=== PATIENT | female | born 1955 | race African-American/Black ===

== ENCOUNTER 2018-05-27 12:50 | Emergency (ER) | payer BC, MEDICAID ==
--- NOTE | 2018-05-27 13:07 | ER Document Report ---
ED General - General Chief Complaint: High Blood Pressure Stated Complaint: BLOOD PRESSURE ISSUES Time Seen by Provider: 05/27/18 13:04 Notes: Patient is a 62-year-old female that presents to the emergency department for chief complaint of cough and high blood pressure. Patient was seen at urgent care today for evaluation for cough and congestion, they had apparently performed an EKG which demonstrated T wave inversions and possible slight ST depression, and they were concerned about this because her blood pressure was elevated in the 200 systolic so they had her come to the emergency department by EMS. The patient denies at any point of having any chest pain recently, today or otherwise. She denies feeling short of breath. She states she is had a dry cough for the past several days since , she said she had some chills o arthur the weekend, that has since resolved. She did take some TheraFlu for this, denies any medications today. Denies any lightheadedness, nausea, vomiting, diaphoresis, abdominal pain, dysuria or hematuria. She was apparently given clonidine prior to ED arrival, 0.1 mg as well as 325 mg of oral aspirin. Past Medical History: Denies chronic medical conditions Past Surgical History: Hysterectomy, cholecystectomy Social History: Denies tobacco, alcohol or illicit drug use. Family History: Reviewed and noncontributory for presenting illness Allergies: Reviewed, see documented allergy list. REVIEW OF SYSTEMS: Other than noted above, the 12 point review of systems was reviewed with the patient and were negative, all pertinent findings are included in the HPI. PHYSICAL EXAMINATION: Vital signs reviewed, nursing noted reviewed. GENERAL: Obese, well-appearing, well-nourished and in no acute distress. HEAD: Atraumatic, normocephalic. EYES: Eyes appear normal, extraocular movements intact, sclera anicteric, conjunctiva are normal. ENT: nares patent, oropharynx clear without exudates. Moist mucous membranes. NECK: Normal range of motion, supple without lymphadenopathy LUNGS: Bilateral wheezing noted throughout all lung davila, no acute respiratory distress HEART: Regular rate and rhythm without murmurs ABDOMEN: Soft, nontender, normoactive bowel sounds. No rebound, guarding, or rigidity. No masses appreciated. EXTREMITIES: Nontender, good range of motion, no pitting or edema. NEUROLOGICAL: No focal neurological deficits. Moves all extremities spontaneously Motor and sensory grossly intact on exam. PSYCH: Normal mood, normal affect. SKIN: Warm, Dry, normal turgor, no rashes or lesions noted on exposed skin TRAVEL OUTSIDE OF THE [place] IN LAST 30 DAYS: No - Related Data Allergies/Adverse Reactions: No Known Allergies Allergy (Verified 05/27/18 13:04) Past Medical History - Social History Smoking Status: Former Smoker Chew tobacco use (# tins/day): No Frequency of alcohol use: None Drug Abuse: None Family History: Reviewed & Not Pertinent Patient has suicidal ideation: No Patient has homicidal ideation: No Renal/ Medical History: Denies: Hx Peritoneal Dialysis Physical Exam - Vital signs Vitals: Pulse Ox 97 05/27/18 13:00 Course - Re-evaluation Re-evalutation: Patient seen and examined vital signs reviewed. Laboratory data and imaging were ordered as appropriate for the patient's pr esenting symptoms and complaint, with consideration of any critical or life threatening conditions that may be associated with their obtained history and exam as noted above. Patient was treated with DuoNeb breathing treatment Results were reviewed when available and demonstrated EKG as noted, negative troponin, chest x-ray demonstrated mild cardiomegaly, otherwise negative, blood work otherwise unremarkable. The patient was re-evaluated and was stable and improved after DuoNeb's, discussed with the patient her markedly elevated blood pressure, she had received clonidine and her blood pressure was coming down to the 160s systolic, I will place her on amlodipine 5 mg daily, and have her follow-up with her primary care physician, as the think the patient does have essential hypertension, and will need treatment, advised follow-up otherwise, she is given an albuterol inhaler, advised to use 2 puffs every 4 hours as needed, along with the spacer. She is also given 5 days worth of prednisone to help with her bronchospastic bronchitis. Evaluation was most consistent with acute bronchitis, elevated blood pressure Results were discussed with the patient at this point, after careful c onsideration I feel that that patient can be discharged from the emergency department, the patient was educated treatments and reasons to return to the emergency department based on their presumed diagnosis as noted above, they were advised to followup with a primary care physician in 2-3 days. Patient was agreeable to plan of care. *Note is created using voice recognition software and may contain spelling, syntax or grammatical errors. Laboratory 05/27/18 05/27/18 05/27/18 13:05 14:00 14:00 WBC 7.8 RBC 5.54 H Hgb 12.1 Hct 37.8 MCV 68 L MCH 21.8 L MCHC 31.9 L RDW 17.0 H Plt Count 280 Seg Neutrophils % 53.5 Lymphocytes % 30.6 Monocytes % 9.4 Eosinophils % 5.8 Basophils % 0.7 Absolute Neutrophils 4.2 Absolute Lymphocytes 2.4 Absolute Monocytes 0.7 Absolute Eosinophils 0.5 Absolute Basophils 0.1 Sodium 138.2 Potassium 4.5 Chloride 105 Carbon Dioxide 26 Anion Gap 7 BUN 11 Creatinine 0.94 Est GFR ( Amer) > 60 Est GFR (Non-Af Amer) > 60 Glucose 94 Calcium 9.2 Total Bilirubin 0.3 Direct Bilirubin 0.2 Neonat Total Bilirubin Not Reportable Neonat Direct Bilirubin Not Reportable Neonat Indirect Bili Not Reportable AST 15 ALT 17 Alkaline Phosphatase 86 Troponin I < 0.012 Total Protein 7.2 Albumin 3.8 Chest X-Ray 05/27/18 13:17 IMPRESSION: Cardiomegaly. - Vital Signs Vital signs: Temp Pulse Resp BP Pulse Ox 98.3 F 19 168/91 H 96 05/27/18 13:03 05/27/18 15:01 05/27/18 15:01 05/27/18 15:01 - Laboratory Result Diagrams: 05/27/18 13:05 05/27/18 14:00 Laboratory results interpreted by me: 05/27/18 13:05 RBC 5.54 H MCV 68 L MCH 21.8 L MCHC 31.9 L RDW 17.0 H - EKG Interpretation by Me Additional EKG results interpreted by me: EKG demonstrates sinus rhythm with a ventricular rate of 59 bpm, normal axis, normal intervals, there are T wave inversions in leads II, III and aVF, as well as leads V2 and V3, no ST segment changes. EKG is compared with EKG performed at urgent care, with what appears to be improvement of her T wave inversions. Discharge - Discharge Clinical Impression: Elevated blood pressure reading URI (upper respiratory infection) Qualifiers: URI type: unspecified URI Qualified Code(s): J06.9 - Acute upper respiratory infection, unspecified Condition: Stable Disposition: HOME, SELF-CARE Instructions: High Blood Pressure, Requiring Treatment ([facility]), Upper Respiratory Illness ([facility]) Additional Instructions: Your blood pressure was very high today and required treatment to bring it down, please follow-up with your primary care physician within 2 weeks, please take the prescribed blood pressure medication daily, and take the prescribed prednisone and albuterol as instructed. You should use the albuterol 2 puffs every 4 hours as needed, but please use it at least 3-4 times a day for the next 3-5 days, to assist with your cough and congestion. Prescriptions: RX: Amlodipine Besylate [Norvasc 5 mg Tablet] 5 mg PO DAILY #14 tablet RX: Prednisone [Deltasone 20 mg Tablet] 2 tab PO DAILY 5 Days #10 tablet Forms: Elevated Blood Pressure Referrals: LOCALMD,NO [NO LOCAL MD] - Follow up as needed
[2018-05-27] MEDS ORDERED: IPRATROPIUM/ALBUTEROL 0.5-2.5 MG/3 ML AMPUL NEB ONE (13:08)
--- NOTE | 2018-05-27 14:09 | RADIOLOGY REPORT (SQ) ---
EXAM DESCRIPTION: CHEST SINGLE VIEW COMPLETED DATE/TIME: 05/27/2018 1:46 pm REASON FOR STUDY: cough COMPARISON: None. EXAM PARAMETERS: NUMBER OF VIEWS: AP portable upright view. TECHNIQUE: Single frontal radiographic view of the chest acquired. RADIATION DOSE: NA LIMITATIONS: None. FINDINGS: LUNGS AND PLEURA: No opacities, masses or pneumothorax. No pleural effusion. MEDIASTINUM AND HILAR STRUCTURES: No masses. Contour normal. HEART AND VASCULAR STRUCTURES: Marked cardiomegaly. Pulmonary vasculature is normal. BONES: No acute findings. HARDWARE: None in the chest. OTHER: Chest leads in place. IMPRESSION: Cardiomegaly. TECHNICAL DOCUMENTATION: JOB ID: [id number] [email or web address]- All Rights Reserved Reading location - IP/workstation name: [email or web address]
[2018-05-27 14:32] LABS: ALANINE AMINOTRANSFERASE 17 U/L (9-52); ALBUMIN 3.8 g/dL (3.5-5.0); ALKALINE PHOSPHATASE 86 U/L (38-126); ANION GAP 7 (5-19); ASPARTATE AMINO TRANSFERASE 15 U/L (14-36); BILIRUBIN,DIRECT 0.2 mg/dL (0.0-0.4); BILIRUBIN,TOTAL 0.3 mg/dL (0.2-1.3); BLOOD UREA NITROGEN 11 mg/dL (7-20); CALCIUM 9.2 mg/dL (8.4-10.2); CARBON DIOXIDE 26 mmol/L (22-30); CHLORIDE 105 mmol/L (98-107); GLUCOSE 94 mg/dL (75-110); POTASSIUM 4.5 mmol/L (3.6-5.0); SODIUM 138.2 mmol/L (137-145); TOTAL PROTEIN 7.2 g/dL (6.3-8.2)
[2018-05-27 14:35] LABS: ABSOLUTE BASOPHILS # (AUTO) 0.1 10^3/uL (0.0-0.2); ABSOLUTE EOSINOPHILS # (AUTO) 0.5 10^3/uL (0.0-0.6); ABSOLUTE LYMPHOCYTES (AUTO) 2.4 10^3/uL (0.5-4.7); ABSOLUTE MONOCYTES (AUTO) 0.7 10^3/uL (0.1-1.4); ABSOLUTE NEUT (AUTO) 4.2 10^3/uL (1.7-8.2); BASOPHILS % (AUTO) 0.7 % (0-2); EOSINOPHILS % (AUTO) 5.8 % (0-6); HEMATOCRIT 37.8 % (36.0-47.0); HEMOGLOBIN 12.1 g/dL (12.0-15.5); LYMPHOCYTES % (AUTO) 30.6 % (13-45); MEAN CORPUSCULAR HEMOGLOBIN 21.8 pg (27.0-33.4); MEAN CORPUSCULAR HGB CONC 31.9 g/dL (32.0-36.0); MEAN CORPUSCULAR VOLUME 68 fl (80-97); MONOCYTES % (AUTO) 9.4 % (3-13); PLATELET COUNT 280 10^3/uL (150-450); RED BLOOD COUNT 5.54 10^6/uL (3.72-5.28); SEGMENTED NEUTROPHILS % (AUTO) 53.5 % (42-78); TOTAL CELLS COUNTED % (AUTO) 100 %; WHITE BLOOD COUNT 7.8 10^3/uL (4.0-10.5)
[2018-05-27] MEDS ORDERED: ALBUTEROL SULFATE HFA (90 MCG/PUFF) 8 GM MDI (1 MDI/ER DISP) IH ONE (15:23)
[2018-05-27 15:40] VITALS: BP 168/91
--- NOTE | 2018-05-27 22:12 | EKG REPORT ---
SEVERITY:- ABNORMAL ECG - SINUS RHYTHM IRBBB AND LPFB : Confirmed by: Virgen Starkey MD 27-May-2018 22:12:09
== END 2018-05-27 15:47 | disposition home or self-care (01) ==
LOC: ER 12:50
DX: R03.0 Elevated blood-pressure reading, without diagnosis of hypertension (principal); J06.9 Acute upper respiratory infection, unspecified; I51.7 Cardiomegaly; E66.9 Obesity, unspecified; R06.2 Wheezing; Z87.891 Personal history of nicotine dependence
CPT/HCPCS: 93005; 99284; 36415; 85025; 80053; 84484; 71045; 93010; J3490